=== PATIENT | female | born 1975 | race Caucasian/White ===

== ENCOUNTER 2020-04-21 23:36 | Emergency (ER) | payer MEDICAID, SELFPAY ==
[2020-04-21 23:41] VITALS: BP 130/90; PULSE 80; RESP 16; TEMP 36.6; O2SAT 97; BMI 41.9
--- NOTE | 2020-04-21 23:46 | ECG_ITS ---
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 Measurements Intervals [place] Rate: 77 P: 38 FL: 168 QRS: 0 QRSD: 94 T: 21 QT: 364 QTc: 414 Interpretive Statements SINUS RHYTHM No previous ECG available for comparison Electronically Signed On 04-22-2020 9:40:09 CDT by Garcia Salazar M.D. [id number] f
--- NOTE | 2020-04-21 23:46 | XRR_ITS ---
PROCEDURE INFORMATION: Exam: XR Chest, 1 View Exam date and time: 04/21/2020 11:59 PM Age: 45 years old Clinical indication: Chest pain; Other: Left axillary pain; Lt chest and back pain; Patient HX: C/O shortness of breath starting 04/21; Additional info: Cp TECHNIQUE: Imaging protocol: XR of the chest Views: 1 view. COMPARISON: No relevant prior studies available. FINDINGS: Lungs: No lung consolidation or pulmonary edema. Pleural space: No pleural effusion or pneumothorax. Heart/Mediastinum: The cardiac silhouette is not enlarged. The mediastinal contours are normal. Bones/joints: Possible upper left lateral rib fractures, age uncertain. There are multilevel bridging osteophytes in the spine. XR/XR chest 1V portable [id number] IMPRESSION: Possible upper left lateral rib fractures. Consider rib detail series for clarification, given the history.
[2020-04-22] LABS: Basophils # 0.1 10^3/uL (0.0-0.1); Basophils % 0.5 %; Eosinophils # 0.1 10^3/uL (0.0-0.8); Eosinophils % 1.1 %; Hematocrit 36.6 % (37.0-47.0); Hemoglobin 12.6 g/dL (11.5-15.3); Lymphocytes # 2.2 10^3/uL (0.8-4.8); Lymphocytes % 21.3 %; Mean Corpuscular HGB Conc 34.4 g/dL (30.0-36.0); Mean Corpuscular Hemoglobin 31.7 pg (28.0-34.0); Mean Corpuscular Volume 92.2 fL (81-99); Mean Platelet Volume 11.3 fL (7.4-10.4); Monocytes # 0.8 10^3/uL (0.2-0.9); Monocytes % 7.5 %; Neutrophils # 7.3 10^3/uL (1.8-7.7); Neutrophils % 68.9 %; Nucleated Red Blood Cells % 0 %; Platelet Count 186 10^3/cmm (130-400); Red Blood Count 3.97 10^6/uL (4.1-5.3); Red Cell Distribution Width 13.4 % (12.1-15.1); White Blood Count 10.5 10^3/uL (4.0-10.0)
[2020-04-22 00:15] LABS: D Dimer 0.22 ug/mIFEU (0-0.59)
[2020-04-22 00:27] LABS: Troponin(5th) Baseline 6 ng/L (0-10)
[2020-04-22 00:32] LABS: Alanine Aminotransferase 19 U/L (0-33); Albumin Level 4.4 g/dL (3.5-5.2); Alkaline Phosphatase 84 IU/L (35-105); Anion Gap 16.9 (5-19); Aspartate Amino Transferase 16 U/L (0-32); Blood Urea Nitrogen 10 mg/dL (6-20); Calcium 9.6 mg/dL (8.5-10.5); Carbon Dioxide 25 mmol/L (22-29); Chloride 100 mmol/L (98-107); Creatine Phosphokinase 67 U/L (26-192); Globulin 2.9 g/dL (1.3-4.6); Glomerular Filtration Rate 78.3 mL/min (90-130); Glucose 127 mg/dL (65-115); NT Pro B Type Natriuretic Pept 6 pg/mL (0-125); Osmolality Calculated 284 mOsm/kg (285-295); Potassium 3.9 mmol/L (3.5-5.1); Sodium 138 mmol/L (136-145); Total Bilirubin 0.3 mg/dL (0.15-1.2); Total Protein 7.3 g/dL (6.6-8.7)
[2020-04-22 01:10] LABS: Add Urine Microscopic? YES; Bilirubin Urine Neg (NEGATIVE); Blood Urine Neg (Negative); Glucose Urine UA Norm (Normal); Ketones Urine Negative (Negative); Leukocyte Esterase Urine Trace (Negative); Nitrate Urine Negative (Negative); Protein Urine Neg (Negative); Specific Gravity, Urine 1.015 (1.005-1.030); Urine Appearance Clear (CLEAR); Urine Color Yellow (Yellow); Urobilinogen Urine Norm (Negative); pH Urine 6 (5-7)
[2020-04-22 01:11] LABS: RBC Urine RARE /hpf (0-2)
[2020-04-22 01:12] LABS: Add Urine Culture? No; Bacteria Urine TRACE; Mucus Urine TRACE; Squamous Epithelial Cell Urine 0-4 (0-5); WBC Urine 0-4 /hpf (0-5)
[2020-04-22 03:17] VITALS: BP 140/81; PULSE 95; RESP 14; O2SAT 99
--- NOTE | 2020-04-22 03:49 | W.ED.CHESTPA ---
HPI - Chest Pain General: Chief Complaint: Chest Pain Stated Complaint: CHEST PAIN Time Seen by Provider: 04/21/20 23:40 History of Present Illness: HPI narrative: 45-year-old female presents complaining of left-sided chest discomfort, nearly in her axilla. She states she feels some swelling into there at times. It is resolved now after the chief i dispatcher told her to take 325 mg of aspirin. MD complaint: chest pain Onset (ago): hour(s) Prior episodes: No Pain location: left chest Pain radiation: back Quality: sharp Relieving factors: nothing Associated symptoms: Reports nausea; Deny abdominal pain, dyspnea, fever(s), palpitations or vomiting Review of Systems Const: Denies: fever(s) Eyes: Denies: change in vision or blurry vision ENMT: Denies: swelling of lips/tongue, bleeding gums or sinus pain Card: Reports: chest pain; Denies: palpitations, irregular heart rhythm or edema Resp: Denies: dyspnea, productive cough, non-productive cough or wheezing GI: Reports: nausea; Denies: abdominal pain or vomiting : Denies: dysuria or hematuria Musc: Reports: back pain; Denies: neck pain, joint redness or joint warmth Skin/Breast: Denies: rash, pruritus or erythema Neuro: Denies: headache(s), dizziness or vertigo Psych: Denies: anxiety PFSH ED PFSH: Family History Mother Hypertension Denies family history of Stroke Social History Smoking and tobacco status: current every day smoker Alcohol intake: never Desire information about alcohol rehabilitation?: No Desire information about substance/drug rehabilitation?: No History of recent travel: No Current gender identity: Female Physical Exam Const: GENERAL APPEARANCE: well developed ORIENTATION/CONSCIOUSNESS: Yes oriented to person, Yes oriented to place and Yes oriented to time HENMT: COMMON NORMALS: normocephalic, external ears normal and Normal external nose present HEAD & SCALP: normocephalic FACE & SINUS: normal facial exam NOSE: Normal external nose present and No nasal discharge present EXTERNAL EAR: Yes external ears normal MOUTH: tongue normal Eye: COMMON NORMALS: Equal, round and reactive pupils present, EOMs intact bilaterally and conjunctivae normal EYELID: eyelids normal CONJUNCTIVA: Yes conjunctivae normal PUPIL: Yes Equal, round and reactive pupils present Neck/C-Spine: GENERAL: No tracheal deviation Chest: COMMONS NORMALS: normal inspection of the chest CHEST: Yes tenderness Resp: COMMON NORMALS: clear to auscultation bilaterally EFFORT & INSPECTION: No tachypneic, No respiratory distress, No retractions, No uses accessory muscles and No tracheal deviation AUSCULTATION: clear to auscultation bilaterally, no rhonchi, no wheezes and lung sounds not diminished Cardio: COMMON NORMALS: regular rate and regular rhythm RATE: regular rate RHYTHM: regular rhythm HEART SOUNDS: no murmurs PERIPHERAL PULSES: radial pulses present GI: INSPECTION: No abdominal distension AUSCULTATION: No Hyperactive bowel sounds present and No Hypoactive bowel sounds present PALPATION: No Guarding due to palpation present (GI) and No Rigid due to palpation PERCUSSION: no dullness to percussion and no tympanic to percussion Neuro: SENSORIUM/ORIENTATION: Yes oriented to person, Yes oriented to place and Yes oriented to time Psych: COMMON NORMALS: mental status grossly normal Skin: COMMON NORMALS: no rashes or lesions noted GENERAL SKIN EXAM: no rashes or lesions noted Course Vital Signs: Vital signs: Vital Signs Temperature 97.9 F 04/21/20 23:41 Pulse Rate 80 04/21/20 23:41 Respiratory Rate 16 04/21/20 23:41 Blood Pressure 130/90 04/21/20 23:41 Pulse Oximetry 97 04/21/20 23:41 MDM - Chest Pain MDM Narrative: Medical decision making narrative: 45-year-old female with resolved chest pain that seems pleuritic in nature. It is somewhat reproducible on exam. White blood cell count is 10.5. Hemoglobin 12.6. Troponin is negative. EKG is normal. Chest x-ray is normal. D-dimer is negative. Lab Data: Labs: Lab Results 04/21/20 04/21/20 04/21/20 Range/Units 23:55 23:55 23:55 WBC 10.5 H (4.0-10.0) 10^3/ uL RBC 3.97 L (4.1-5.3) 10^6/u L Hgb 12.6 (11.5-15.3) g/dL Hct 36.6 L (37.0-47.0) % MCV 92.2 (81-99) fL MCH 31.7 (28.0-34.0) pg MCHC 34.4 (30.0-36.0) g/dL RDW 13.4 (12.1-15.1) % Plt Count 186 (130-400) 10^3/c mm MPV 11.3 H (7.4-10.4) fL Neut % (Auto) 68.9 % Lymph % (Auto) 21.3 % [place] % (Auto) 7.5 % Eos % (Auto) 1.1 % Baso % (Auto) 0.5 % Neut # (Auto) 7.3 (1.8-7.7) 10^3/u L Lymph # (Auto) 2.2 (0.8-4.8) 10^3/u L [place] # (Auto) 0.8 (0.2-0.9) 10^3/u L Eos # (Auto) 0.1 (0.0-0.8) 10^3/u L Baso # (Auto) 0.1 (0.0-0.1) 10^3/u L Nucleated RBC % (a uto) 0 % Nucleated RBCs # 0.0 /100WBC D-Dimer 0.22 (0-0.59) ug/mIFE U Sodium 138 (136-145) mmol/L Potassium 3.9 (3.5-5.1) mmol/L Chloride 100 (98-107) mmol/L Carbon Dioxide 25 (22-29) mmol/L Anion Gap 16.9 (5-19) BUN 10 (6-20) mg/dL Creatinine 0.8 (0.5-0.9) mg/dL GFR Calculation 78.3 L (90-130) mL/min Glucose 127 H (65-115) mg/dL Calculated Osmolal ity 284 L (285-295) mOsm/k g Calcium 9.6 (8.5-10.5) mg/dL Total Bilirubin 0.3 (0.15-1.2) mg/dL AST 16 (0-32) U/L ALT 19 (0-33) U/L Alkaline Phosphata se 84 (35-105) IU/L Creatine Kinase 67 (26-192) U/L Troponin T Baselin e (0-10) ng/L NT-Pro-B Natriuret Pep 6 (0-125) pg/mL Total Protein 7.3 (6.6-8.7) g/dL Albumin 4.4 (3.5-5.2) g/dL Globulin 2.9 (1.3-4.6) g/dL Urine Color (Yellow) Urine Appearance (CLEAR) Urine pH (5-7) Ur Specific Gravit y (1.005-1.030) Urine Protein (Negative) Urine Glucose (UA) (Normal) Urine Ketones (Negative) Urine Blood (Negative) Urine Nitrate (Negative) Urine Bilirubin (NEGATIVE) Urine Urobilinogen (Negative) mg/dL Ur Leukocyte Landy ase (Negative) Urine RBC (0-2) /hpf Urine WBC (0-5) /hpf Ur Squamous Epith Cells (0-5) Amorphous Sediment Urine Bacteria (NONE) Urine Mucus 04/21/20 04/22/20 Range/Units 23:55 00:20 WBC (4.0-10.0) 10^3/ uL RBC (4.1-5.3) 10^6/u L Hgb (11.5-15.3) g/dL Hct (37.0-47.0) % MCV (81-99) fL MCH (28.0-34.0) pg MCHC (30.0-36.0) g/dL RDW (12.1-15.1) % Plt Count (130-400) 10^3/c mm MPV (7.4-10.4) fL Neut % (Auto) % Lymph % (Auto) % [place] % (Auto) % Eos % (Auto) % Baso % (Auto) % Neut # (Auto) (1.8-7.7) 10^3/u L Lymph # (Auto) (0.8-4.8) 10^3/u L [place] # (Auto) (0.2-0.9) 10^3/u L Eos # (Auto) (0.0-0.8) 10^3/u L Baso # (Auto) (0.0-0.1) 10^3/u L Nucleated RBC % (a uto) % Nucleated RBCs # /100WBC D-Dimer (0-0.59) ug/mIFE U Sodium (136-145) mmol/L Potassium (3.5-5.1) mmol/L Chloride (98-107) mmol/L Carbon Dioxide (22-29) mmol/L Anion Gap (5-19) BUN (6-20) mg/dL Creatinine (0.5-0.9) mg/dL GFR Calculation (90-130) mL/min Glucose (65-115) mg/dL Calculated Osmolal ity (285-295) mOsm/k g Calcium (8.5-10.5) mg/dL Total Bilirubin (0.15-1.2) mg/dL AST (0-32) U/L ALT (0-33) U/L Alkaline Phosphata se (35-105) IU/L Creatine Kinase (26-192) U/L Troponin T Baselin e 6 (0-10) ng/L NT-Pro-B Natriuret Pep (0-125) pg/mL Total Protein (6.6-8.7) g/dL Albumin (3.5-5.2) g/dL Globulin (1.3-4.6) g/dL Urine Color Yellow (Yellow) Urine Appearance Clear (CLEAR) Urine pH 6 (5-7) Ur Specific Gravit y 1.015 (1.005-1.030) Urine Protein Neg (Negative) Urine Glucose (UA) Norm (Normal) Urine Ketones Negative (Negative) Urine Blood Neg (Negative) Urine Nitrate Negative (Negative) Urine Bilirubin Neg (NEGATIVE) Urine Urobilinogen Norm (Negative) mg/dL Ur Leukocyte Landy ase Trace H (Negative) Urine RBC Rare (0-2) /hpf Urine WBC 0-4 H (0-5) /hpf Ur Squamous Epith Cells 0-4 H (0-5) Amorphous Sediment Not Reportable Urine Bacteria Trace (NONE) Urine Mucus Trace Discharge Plan Discharge Patient Disposition: Home, Self-Care Clinical Impression: Atypical chest pain, Costalchondritis Condition: Stable Prescriptions: New ketorolac 10 mg tablet 10 mg PO TID PRN (Reason: pain) Qty: 7 RF: 0 No Action lisinopril 10 mg tablet 10 mg PO DAILY RF: 0 bupropion HCl [Wellbutrin SR] 150 mg tablet sustained-release 12 hr 150 mg PO DAILY RF: 0 Discharge Orders: Discharge Order (Routine); Ordered 04/22/20 Ordered By: Vinayak Keene Discharge Diet: Usual diet Discharge Activity: Increase activity as tolerated Patient Instructions: Chest Pain (ED), Costochondritis (ED) Activity Restrictions/Additional Instructions: Return for worsening chest pain despite treatment, shortness of breath, fever greater than 100, cough, other concerning symptoms. Coding Level of Care Code ED Video Tape Duplicator for Jenifer Westbrook
--- NOTE | 2020-04-22 04:47 | PC.NURSE ---
i agree with this assessment
== END 2020-04-22 03:17 | disposition home or self-care (01) ==
PROVIDERS: Emergency Provider Emergency Medicine
DX: R07.89 Other chest pain (principal); M94.0 Chondrocostal junction syndrome [Tietze]; F17.210 Nicotine dependence, cigarettes, uncomplicated
CPT/HCPCS: 12345; 71045; 80053; 81001; 82550; 83880; 84484; 85025; 85378; 93005; 99282; 99284

== ENCOUNTER → 2020-06-21 16:36 | Outpatient (BNVA) | payer MEDICAID, SELFPAY | PROVIDERS: Visit Provider Emergency Medicine | DX: E66.9 Obesity, unspecified (principal); I10 Essential (primary) hypertension | CPT/HCPCS: 80053; 80061; 83880; 84443 ==

== ENCOUNTER → 2020-12-17 12:06 | Outpatient (BNVA) | payer MEDICAID, SELFPAY | PROVIDERS: PCP Family Medicine; Visit Provider Family Medicine | DX: E66.9 Obesity, unspecified (principal); R73.9 Hyperglycemia, unspecified; Z13.1 Encounter for screening for diabetes mellitus; E78.2 Mixed hyperlipidemia; I10 Essential (primary) hypertension; Z12.4 Encounter for screening for malignant neoplasm of cervix; Z13.220 Encounter for screening for lipoid disorders; Z13.6 Encounter for screening for cardiovascular disorders | CPT/HCPCS: 80053; 80061; 83036; 83721; 88175 ==

== ENCOUNTER → 2020-12-26 12:12 | Outpatient (BNVA) | payer MEDICAID, SELFPAY | PROVIDERS: PCP Family Medicine; Visit Provider Family Medicine | DX: I10 Essential (primary) hypertension (principal); K21.9 Gastro-esophageal reflux disease without esophagitis; A59.9 Trichomoniasis, unspecified; E78.2 Mixed hyperlipidemia; R87.616 Satisfactory cervical smear but lacking transformation zone; Z11.3 Encounter for screening for infections with a predominantly sexual mode of transmission | CPT/HCPCS: 87491; 87591 ==

== ENCOUNTER 2021-05-15 03:42 | Emergency (ER) | payer MEDICAID, SELFPAY ==
[2021-05-15 03:43] VITALS: BP 127/80; PULSE 78; RESP 16; TEMP 36.6; O2SAT 99; BMI 46.3
--- NOTE | 2021-05-15 03:54 | W.ED.GENADLT ---
HPI - General Adult General: Stated complaint: chest tightness Time Seen by Provider: 05/15/21 03:45 History of Present Illness: HPI narrative: This patient presents to the emergency department complaint of multiple vague complaints and thinks there related to the Covid vaccine that she got yesterday. Patient states upon arrival to the emergency department now all symptoms have resolved. Patient was transported by ambulance from [facility] about an hour away. Patient states that she thought she had developed a rash but it is resolved. Patient states that she had some numbness and tingling that is also resolved patient is feeling much better now. Patient had called the emergency department multiple times earlier tonight asking questions. Similar nature. Patient was given reassurance. Patient has a negative exam patient will be discharged home. Severity: mild Pain Consistency: now resolved Associated symptoms: Deny chest pain, dyspnea, headache(s), nausea, rash, palpitations or vomiting Review of Systems General: Reports: 10 or more systems reviewed and unremarkable except in HPI and below Const: Denies: fever(s), chills, body aches or fatigue Eyes: Denies: change in vision or blurry vision ENMT: Denies: throat pain, hoarseness or mouth pain Card: Denies: chest pain, palpitations, irregular heart rhythm, edema, swelling of feet/ankles or lightheadedness Resp: Denies: dyspnea, productive cough, non-productive cough, wheezing or pain on inspiration GI: Denies: abdominal pain, nausea or vomiting : Denies: flank pain, difficulty voiding, dysuria, urinary frequency, urinary urgency or urinary hesitancy Musc: Denies: neck pain, back pain, extremity pain, extremity swelling, joint pain, joint swelling, joint redness, joint warmth or limited range of motion Skin/Breast: Denies: rash, pruritus, erythema or skin tenderness Neuro: Denies: headache(s), numbness in extremities or weakness in extremities Psych: Reports: anxiety; Denies: depression PFSH ED PFSH: Medical History Essential hypertension GERD (gastroesophageal reflux disease) Mixed hyperlipidemia Obesity Surgical History No pertinent past surgical history Family History Mother Hypertension Denies family history of Stroke Social History Smoking and tobacco status: current every day smoker Alcohol intake: never Desire information about alcohol rehabilitation?: No Desire information about substance/drug rehabilitation?: No History of recent travel: No Current gender identity: Female Female Reproductive History: Spontaneous abortions: No Physical Exam Const: COMMON NORMALS: no acute distress, average body habitus, patient oriented x3, no limitations, healthy appearing, alert and well nourished HENMT: COMMON NORMALS: normocephalic, atraumatic, hearing grossly normal bilaterally, external ears normal, EAC's normal, TM's normal bilaterally, Normal external nose present, Normal nasal mucous membranes and turbinates present, moist oral mucous membranes, oropharynx normal, dentition normal and gingiva normal HEAD & SCALP: normocephalic and atraumatic NOSE: Normal external nose present and Normal nasal mucous membranes and turbinates present EXTERNAL EAR: Yes external ears normal EXTERNAL AUDITORY CANAL: EAC's normal TYMPANIC MEMBRANE: TM's normal bilaterally Neck/C-Spine: COMMON NORMALS: full ROM, no lymphadenopathy, supple, no meningeal signs, no JVD, Thyroid normal and No carotid bruits THYROID: Thyroid normal Chest: COMMONS NORMALS: normal inspection of the chest, normal palpation of entire chest wall, normal inspection of the breasts and normal palpation of the breasts Breast/axilla inspection: Yes normal inspection of the breasts BREAST/AXILLA PALPATION: Yes normal palpation of the breasts Resp: COMMON NORMALS: normal respiratory effort, No retractions, No use of accessory muscles, clear to auscultation bilaterally and percussion normal AUSCULTATION: clear to auscultation bilaterally PERCUSSION: percussion normal Cardio: COMMON NORMALS: no JVD, regular rate, regular rhythm, S1 normal heart sound present, S2 normal heart sound present, No gallops present (Cardio), No clicks present (Cardio), No murmurs present (Cardio), No rub (Cardio) and Peripheral pulses 2+ throughout RATE: regular rate RHYTHM: regular rhythm HEART SOUNDS: S1 normal heart sound present and S2 normal heart sound present PERIPHERAL PULSES: Peripheral pulses 2+ throughout GI: COMMON NORMALS: Normal to inspection, nondistended, normoactive bowel sounds present, Soft to palpation, non-tender, No hepatosplenomegaly present, no masses and no bruits PALPATION: Yes Soft to palpation and Yes No hepatosplenomegaly present Back/Pelvis: COMMON NORMALS: thoracic and lumbar spine normal to inspection, no thoracic nor lumbar tenderness, thoraco-lumbar ROM normal and straight leg raise negative bilaterally Extremity: COMMON NORMALS: normal to inspection, full ROM, capillary refill normal, no joint enlargement, no clubbing, cyanosis or edema, no calf tenderness and no pedal edema Neuro: COMMON NORMALS: patient oriented x3 SENSORIUM/ORIENTATION: Yes alert MENINGEAL SIGNS: Yes no meningeal signs MDM - General Adult MDM Narrative: Medical decision making narrative: Negative evaluation for any acute findings. Patient given reassurance. Advised to follow-up with her primary care physician discuss any options for chronic anxiety issues. Patient may take Tylenol Motrin as needed for soreness to the arm from her vaccine. Discharge Plan Discharge Patient Disposition: Home Clinical Impression: Encounter for medical screening examination, Anxiety Condition: Stable Prescriptions: No Action azithromycin 250 mg tablet See Rx Instructions PO .COMPLEX Qty: 6 RF: 0 prednisone 20 mg tablet 40 mg PO DAILY 5 Days Qty: 10 RF: 0 lidocaine 5 % adhesive patch,medicated 1 patch topical Q24H Qty: 15 RF: 1 omeprazole 20 mg capsule,delayed release(DR/EC) 20 mg PO DAILY 90 Days Qty: 90 RF: 1 lisinopril 40 mg tablet 40 mg PO DAILY 90 Days Qty: 90 RF: 1 Discharge Orders: Discharge ED (Routine); Ordered 05/15/21 Ordered By: Arsalan Whatley Referrals: Mansi Miranda MD [Primary Care Provider] - Discharge Diet: Advance as tolerated Discharge Activity: Resume usual activity Patient Instructions: Opioid Safety Activity Restrictions/Additional Instructions: May take Tylenol Motrin as needed as needed for pain to the arm of immunization. Follow-up with PCP to discuss options about your anxiety. Coding Level of Care Code ED Gear Tooth Grinding Machine Operator for Jenifer Westbrook
--- NOTE | 2021-05-15 03:57 | PC.NURSE ---
Pt stated symptoms were resloved upon arrival to ED
== END 2021-05-15 04:04 | disposition home or self-care (01) ==
PROVIDERS: Emergency Provider Emergency Medicine; PCP Family Medicine
DX: F41.9 Anxiety disorder, unspecified (principal); I10 Essential (primary) hypertension; E78.2 Mixed hyperlipidemia; E66.9 Obesity, unspecified; Z68.42 Body mass index [BMI] 45.0-49.9, adult; F17.200 Nicotine dependence, unspecified, uncomplicated
CPT/HCPCS: 99282

== ENCOUNTER → 2021-06-26 11:33 | Outpatient (BNVA) | payer MEDICAID, SELFPAY | PROVIDERS: PCP Family Medicine; Visit Provider Family Medicine | DX: I10 Essential (primary) hypertension (principal); J44.9 Chronic obstructive pulmonary disease, unspecified; Z11.3 Encounter for screening for infections with a predominantly sexual mode of transmission; K21.9 Gastro-esophageal reflux disease without esophagitis; Z72.0 Tobacco use; Z86.19 Personal history of other infectious and parasitic diseases | CPT/HCPCS: 87491; 87591; 87661 ==

== ENCOUNTER → 2021-11-07 14:47 | Outpatient (BNVA) | payer MEDICAID, SELFPAY | PROVIDERS: PCP Family Medicine; Visit Provider Emergency Medicine | DX: R07.89 Other chest pain (principal); G89.29 Other chronic pain; M54.2 Cervicalgia | CPT/HCPCS: 71046; 72040 ==

== ENCOUNTER → 2022-01-01 10:49 | Outpatient (BNVA) | payer MEDICAID, SELFPAY | PROVIDERS: PCP Family Medicine; Visit Provider Family Medicine | DX: E78.2 Mixed hyperlipidemia (principal); I10 Essential (primary) hypertension; J44.9 Chronic obstructive pulmonary disease, unspecified; K21.9 Gastro-esophageal reflux disease without esophagitis | CPT/HCPCS: 80053; 80061; 85025 ==

== ENCOUNTER 2022-01-16 13:17 | Outpatient (CLI) | payer MEDICAID, SELFPAY ==
--- NOTE | 2022-01-16 14:00 | CT_ITS ---
[id number]. Additional two-dimensional coronal and sagittal reconstruction was per formed. 01/16/2022 Clinical Data: R07.89 - Other chest pain Comparison: None. DLP: 1878.[address] scans at [facility] use at least one of these dose optimization techniques: automated e xposure control; mA and/or kV adjustment per patient size (includes targeted exams where dose is matc hed to clinical indication); or iterative reconstruction. Findings: No thoracic compression fractures are seen. There is compression fracture of the L1 vertebral body wi th loss of 25-50% of anterior central vertebral body height of unknown age. Anterior bridging osteoph ytes at T12 and L1 are seen. There are bridging osteophytes at multiple thoracic levels. The spinous processes are in good alignment. The proximal ribs are not remarkable. Paravertebral regions are unre markable. CT/CT thoracic spin wo con* [id number] Impression: 1. L1 compression fracture of unknown age. 2. 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 3. Negative for thoracic compression fractures.
== END 2022-01-16 13:18 | disposition home or self-care (01) ==
LOC: RAD 13:19
PROVIDERS: PCP Family Medicine; Visit Provider Emergency Medicine
DX: R07.89 Other chest pain (principal); M54.10 Radiculopathy, site unspecified; S32.019A Unspecified fracture of first lumbar vertebra, initial encounter for closed fracture; X58.XXXA Exposure to other specified factors, initial encounter
CPT/HCPCS: 72128

== ENCOUNTER → 2022-01-29 11:08 | Outpatient (BNVA) | payer MEDICAID, SELFPAY | PROVIDERS: PCP Family Medicine; Referring Provider Emergency Medicine; Visit Provider Physician Assistant | DX: M47.22 Other spondylosis with radiculopathy, cervical region (principal); M50.30 Other cervical disc degeneration, unspecified cervical region | CPT/HCPCS: 72050; 99203; 99999 ==

== ENCOUNTER 2022-03-18 12:42 | Outpatient (CLI) | payer MEDICAID, SELFPAY ==
--- NOTE | 2022-03-18 13:00 | MR_ITS ---
WS: [id number] MRI CERVICAL SPINE NONCONTRAST TECHNIQUE: Sagittal T1, T2 and STIR imaging. Axial T2, gradient, and fiesta imaging. CLINICAL INFORMATION: neck pain COMPARISON: None. FINDINGS: Straightening of the normal cervical lordosis. Cord signal is normal. No high-grade central canal hali rowing. C2-C3: Normal. C3-C4: Mild disc bulging. Mild facet arthropathy. Mild LEFT and no RIGHT foraminal narrowing. Mild fa cet arthropathy. Spinal canal is patent. C4-C5: Minimal disc bulging. Mild facet arthropathy. Spinal canal and foramen are patent. C5-C6: Mild disc bulge with endplate ridging. Mild facet arthropathy. Mild LEFT and no RIGHT foramina l narrowing. C6-C7: Minimal disc bulging. Spinal canal and foramen are patent. C7-T1: Normal. Visualized brain stem structures: Normal. Prevertebral soft tissues: Normal. MR/MR cervical spin wo con* [id number] IMPRESSION: 1. Straightening of the normal cervical lordosis. Cord signal is normal. 2. Minimal disc bulging in the mid cervical spine C3-C5 without significant sp inal canal narrowing. 3. Mild bony foraminal narrowing LEFT C3-C4, LEFT C4-C5, and LEFT C5-C6. 4. Mild facet arthropathy more prominent at LEFT C3-C4, LEFT C4-C5 and LEFT C6 -C7.
== END 2022-03-18 12:43 | disposition home or self-care (01) ==
LOC: RAD 12:44
PROVIDERS: PCP Family Medicine; Visit Provider Physician Assistant
DX: M47.22 Other spondylosis with radiculopathy, cervical region (principal); M50.21 Other cervical disc displacement, high cervical region
CPT/HCPCS: 72141

== ENCOUNTER → 2022-04-07 10:39 | Outpatient (BNVA) | payer MEDICAID, SELFPAY | PROVIDERS: PCP Family Medicine; Visit Provider Physician Assistant | DX: M50.30 Other cervical disc degeneration, unspecified cervical region (principal); M47.812 Spondylosis without myelopathy or radiculopathy, cervical region | CPT/HCPCS: 99213 ==

== ENCOUNTER 2022-04-10 10:44 | Outpatient (CLI) | payer MEDICAID, SELFPAY ==
--- NOTE | 2022-04-10 10:53 | MM_ITS ---
WS: [id number] SCREENING DIGITAL BREAST TOMOSYNTHESIS MAMMOGRAM WITH CAD HISTORY: SCREEN COMPARISON: None available. Bilateral CC and MLO with tomosynthesis and synthetic mammography submitted. Computer aided detection analyzed. Breast composition: There are scattered areas of fibroglandular density. Ovoid asymmetry measuring 15 mm in the lateral LEFT breast on the CC projection. Not identified on the lateral projection. This i s probably normal fibroglandular tissue but should be further evaluated. Benign calcifications in eac h breast. MM/[place] [id number] IMPRESSION: BI-RADS: 0-Incomplete: Need additional imaging evaluation FOLLOW UP: Need Additional Imaging LEFT breast: Spot compression views (CC ). True ML. Ultrasound to follow if abn ormality persists.
== END 2022-04-10 10:45 | disposition home or self-care (01) ==
LOC: RAD 10:48
PROVIDERS: PCP Family Medicine; Visit Provider Family Medicine
DX: Z12.31 Encounter for screening mammogram for malignant neoplasm of breast (principal)
CPT/HCPCS: 77063; 77067

== ENCOUNTER 2022-04-24 13:08 | Outpatient (CLI) | payer MEDICAID, SELFPAY ==
--- NOTE | 2022-04-24 13:16 | MM_ITS ---
WS: [id number] ADDITIONAL VIEWS LEFT MAMMOGRAM WITH DIGITAL BREAST TOMOSYNTHESIS. HISTORY: Abnormal findings on screening mammogram 04/10/2022. COMPARISON: 04/10/2022. Spot compression views LEFT breast in CC, MLO projections and true ML submitted with digital breast t omosynthesis and SM. Very slight asymmetry nearly completely resolves with additional imaging. No persistent mass or calci fication identified. No ultrasound necessary. MM/[place] [id number] IMPRESSION: BI-RADS: 2-Benign FOLLOW UP: 1 Year Follow-up
== END 2022-04-24 13:09 | disposition home or self-care (01) ==
LOC: RAD 13:09
PROVIDERS: PCP Family Medicine; Visit Provider Family Medicine
DX: R92.8 Other abnormal and inconclusive findings on diagnostic imaging of breast (principal)
CPT/HCPCS: 77061

== ENCOUNTER → 2022-05-28 11:13 | Outpatient (BNVA) | payer MEDICAID, SELFPAY | PROVIDERS: PCP Family Medicine; Visit Provider Family Medicine | DX: K21.9 Gastro-esophageal reflux disease without esophagitis (principal); I10 Essential (primary) hypertension; M50.30 Other cervical disc degeneration, unspecified cervical region; F41.1 Generalized anxiety disorder; R51.9 Headache, unspecified; J41.0 Simple chronic bronchitis; N39.0 Urinary tract infection, site not specified; N95.1 Menopausal and female climacteric states; N92.6 Irregular menstruation, unspecified; R30.0 Dysuria | CPT/HCPCS: 80048; 81000; 83001; 83002; 87086 ==

== ENCOUNTER → 2022-08-19 11:50 | Outpatient (BNVA) | payer MEDICAID, SELFPAY | PROVIDERS: PCP Family Medicine; Visit Provider Emergency Medicine | DX: R68.89 Other general symptoms and signs (principal); J10.1 Influenza due to other identified influenza virus with other respiratory manifestations; Z72.0 Tobacco use; J41.0 Simple chronic bronchitis | CPT/HCPCS: 87400 ==

== ENCOUNTER 2022-09-21 00:30 | Emergency (ER) | payer MEDICAID, SELFPAY ==
[2022-09-21] VITALS (7 sets, daily range): BP systolic 125–167; BP diastolic 89–107; PULSE 78–85; RESP 14–17; TEMP 37.1; O2SAT 96–99; BMI 42.7
--- NOTE | 2022-09-21 00:42 | W.ED.GENADLT ---
HPI - General Adult General: Chief complaint: General Medical Stated complaint: htn Time Seen by Provider: 09/21/22 00:32 Source: patient and EMS Mode of arrival: EMS Limitations: no limitations History of Present Illness: 47-year-old female who states that her blood pressures been running high tonight she states originally was in the 200s blood pressure is now is 160/109 states she had a mild headache denies any chest pain denies any vomiting diarrhea she takes lisinopril states she has been taking her lisinopril as prescribed. Associated symptoms: Deny chest pain, dyspnea, headache(s), nausea, rash or vomiting Review of Systems Const: Denies: fever(s), chills, body aches or change in appetite Eyes: Denies: blurry vision or eye discomfort ENMT: Denies: throat pain or dental pain Card: Denies: chest pain Resp: Denies: dyspnea GI: Denies: abdominal pain, nausea, vomiting or diarrhea : Denies: dysuria Musc: Denies: neck pain or back pain Skin/Breast: Denies: rash Neuro: Denies: headache(s) Psych: Denies: depression Luis A/Lymph: Denies: easy bruising All/Imm: Denies: urticaria PFSH ED PFSH: Medical History Chronic back pain greater than 3 months duration Essential hypertension GERD (gastroesophageal reflux disease) Mixed hyperlipidemia Obesity Surgical History No pertinent past surgical history Family History Mother Hypertension Denies family history of Stroke Social History Smoking and tobacco status: current every day smoker cigarettes Packs smoked per day: 1 Years cigarettes smoked: 30 Alcohol intake: never Desire information about alcohol rehabilitation?: No Desire information about substance/drug rehabilitation?: No History of recent travel: No Current gender identity: Female Female Reproductive History: Date of last menstrual period: 05/08/21 Spontaneous abortions: No Physical Exam Const: COMMON NORMALS: no acute distress, patient oriented x3 and healthy appearing HENMT: COMMON NORMALS: normocephalic and atraumatic HEAD & SCALP: normocephalic and atraumatic Eye: COMMON NORMALS: Equal, round and reactive pupils present and EOMs intact bilaterally PUPIL: Yes Equal, round and reactive pupils present Neck/C-Spine: COMMON NORMALS: full ROM and supple Chest: COMMONS NORMALS: normal inspection of the chest and normal palpation of entire chest wall Resp: COMMON NORMALS: normal respiratory effort, No retractions, No use of accessory muscles and clear to auscultation bilaterally AUSCULTATION: clear to auscultation bilaterally Cardio: COMMON NORMALS: regular rate, regular rhythm and No murmurs present (Cardio) RATE: regular rate RHYTHM: regular rhythm GI: COMMON NORMALS: Normal to inspection, nondistended, normoactive bowel sounds present, Soft to palpation, non-tender and no masses PALPATION: Yes Soft to palpation Extremity: COMMON NORMALS: normal to inspection and full ROM Neuro: COMMON NORMALS: patient oriented x3, moves all extremities and no focal motor deficits Psych: COMMON NORMALS: mental status grossly normal, Normal thought process present and cooperative THOUGHT PROCESS: Normal thought process present Skin: COMMON NORMALS: no rashes or lesions noted and no wounds GENERAL SKIN EXAM: no rashes or lesions noted Course Vital Signs: Vital signs: Vital Signs Temperature 98.8 F 09/21/22 00:36 Pulse Rate 85 09/21/22 01:00 Respiratory Rate 16 09/21/22 01:00 Blood Pressure 129/92 09/21/22 01:00 Pulse Oximetry 96 09/21/22 01:00 Oxygen Delivery Me thod 09/21/22 00:45 MDM - General Adult Medical Decision Making Patient presents with hypertension she is asymptomatic she is well-appearing here blood pressure is normal currently blood work is normal we will start her on metoprolol have her follow-up with her PCP and return if worsening she understands agrees to the plan. Lab Data 09/21/22 00:56 09/21/22 00:56 Laboratory Results WBC 7.1 10^3/uL (4.0-10.0) 09/21/22 00:56 RBC 4.07 10^6/uL (4.1-5.3) L 09/21/22 00:56 Hgb 12.4 g/dL (11.5-15.3) 09/21/22 00:56 Hct 35.9 % (37.0-47.0) L 09/21/22 00:56 MCV 88.2 fl (81-99) 09/21/22 00:56 MCH 30.5 pg (28.0-34.0) 09/21/22 00:56 MCHC 34.5 g/dL (30.0-36.0) 09/21/22 00:56 RDW 13.3 % (12.1-15.1) 09/21/22 00:56 Plt Count 161 10^3/cmm (130-400) 09/21/22 00:56 MPV 10.8 fL (7.4-10.4) H 09/21/22 00:56 Neut % (Auto) 64.5 % 09/21/22 00:56 Lymph % (Auto) 26.6 % 09/21/22 00:56 [place] % (Auto) 5.1 % 09/21/22 00:56 Eos % (Auto) 2.1 % 09/21/22 00:56 Baso % (Auto) 0.3 % 09/21/22 00:56 Neut # (Auto) 4.57 10^3/uL (1.8-7.7) 09/21/22 00:56 Lymph # (Auto) 1.9 10^3/uL (0.8-4.8) 09/21/22 00:56 [place] # (Auto) 0.4 10^3/uL (0.2-0.9) 09/21/22 00:56 Eos # (Auto) 0.2 10^3/uL (0.0-0.8) 09/21/22 00:56 Baso # (Auto) 0.0 10^3/uL (0.0-0.1) 09/21/22 00:56 Nucleated RBC % (auto) 0 % 09/21/22 00:56 Nucleated RBCs # 0.0 /100WBC 09/21/22 00:56 Sodium 140 mmol/L (136-145) 09/21/22 00:56 Potassium 3.8 mmol/L (3.5-5.1) 09/21/22 00:56 Chloride 105 mmol/L (98-107) 09/21/22 00:56 Carbon Dioxide 25 mmol/L (22-29) 09/21/22 00:56 Anion Gap 13.8 (5-19) 09/21/22 00:56 BUN 8 mg/dL (6-20) 09/21/22 00:56 Creatinine 0.8 mg/dL (0.5-0.9) 09/21/22 00:56 Calculated Osmolality 289 mOsm/kg (285-295) 09/21/22 00:56 Calcium 9.4 mg/dL (8.5-10.5) 09/21/22 00:56 Total Bilirubin 0.5 mg/dL (0.15-1.2) 09/21/22 00:56 AST 21 U/L (0-32) 09/21/22 00:56 ALT 26 U/L (0-33) 09/21/22 00:56 Alkaline Phosphatase 78 U/L (35-105) 09/21/22 00:56 Total Protein 6.7 g/dL (6.6-8.7) 09/21/22 00:56 Albumin 3.9 g/dL (3.5-5.2) 09/21/22 00:56 Globulin 2.8 g/dL (1.3-4.6) 09/21/22 00:56 EKG Data EKG 1: I personally reviewed and interpreted this EKG as follows: EKG interpretation date: 09/21/22 EKG interpretation time: 00:50 Interpretation: nsr hr [address] or t wave abnormalities qrs 92 qtc 400 Discharge Plan Discharge Patient Disposition: Home Clinical Impression: Essential hypertension Condition: Stable Prescriptions: New metoprolol succinate 25 mg tablet extended release 24 hr 25 mg PO DAILY Qty: 30 0RF No Action [id number] [Bromfed DM] 2-30-10 mg/5 mL syrup 7.5 ml PO Q6H PRN (Reason: cold symptoms) Qty: 160 0RF doxycycline hyclate 100 mg tablet 100 mg PO BID 10 Days Qty: 20 0RF prednisone 10 mg tablet 10 mg PO DAILY 5 Days Qty: 5 0RF buspirone 5 mg tablet 5 mg PO BID PRN (Reason: anxiety) 30 Days Qty: 60 2RF tizanidine 2 mg tablet 4 mg PO DAILY PRN (Reason: muscle spasticity) Qty: 30 2RF Rx Instructions: 1 or 2 tabs as directed for neck pain/headache diclofenac sodium 50 mg tablet,delayed release (DR/EC) 50 mg PO BID PRN (Reason: arthritis pain) 90 Days Qty: 180 1RF Rx Instructions: WITH FOOD albuterol sulfate [ProAir HFA] 90 mcg/actuation HFA aerosol inhaler 2 puff inhalation QID PRN (Reason: shortness of breath or wheezing) 30 Days Qty: 18 5RF budesonide-formoterol [Symbicort] 160-4.5 mcg/actuation HFA aerosol inhaler 2 puff inhalation Q12H 30 Days Qty: 10.2 5RF Rx Instructions: rinse your mouth out after use lisinopril 40 mg tablet 40 mg PO DAILY 90 Days Qty: 90 1RF Rx Instructions: 340B omeprazole 40 mg capsule,delayed release(DR/EC) 40 mg PO DAILY 90 Days Qty: 90 1RF Rx Instructions: 340B Discharge Orders: Discharge ED (Routine); Ordered 09/21/22 Ordered By: Ramona Mcneal Referrals: Mansi Miranda MD [Primary Care Provider] - 1-3 days Discharge Diet: Advance as tolerated Discharge Activity: Resume usual activity Patient Instructions: Hypertension (ED) Coding Level of Care Code ED Night Club Manager for Chg Fwd Exam Comprehensive
--- NOTE | 2022-09-21 00:50 | ECG_ITS ---
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 Measurements Intervals [place] Rate: 81 P: 20 ND: 169 QRS: -11 QRSD: 92 T: 6 QT: 362 QTc: 422 Interpretive Statements SINUS RHYTHM POSSIBLE ANTERIOR MYOCARDIAL INFARCTION , PROBABLY OLD [30 ms Q WAVE IN V3/V4, OR R < 0.2 mV IN V4] Compared to ECG 04/22/2020 00:00:39 Myocardial infarct finding now present Electronically Signed On 09-21-2022 14:21:28 FUNCTIONAL ANALYST by Madhavi Collins M.D. [id number]
[2022-09-21] MEDS: hyDRALAzine 20 mg/mL INJ 1 mL 10 MG IVP (01:00)
[2022-09-21 01:08] LABS: Basophils % 0.3 %; Eosinophils # 0.2 10^3/uL (0.0-0.8); Eosinophils % 2.1 %; Hematocrit 35.9 % (37.0-47.0); Hemoglobin 12.4 g/dL (11.5-15.3); Lymphocytes # 1.9 10^3/uL (0.8-4.8); Lymphocytes % 26.6 %; Mean Corpuscular HGB Conc 34.5 g/dL (30.0-36.0); Mean Corpuscular Hemoglobin 30.5 pg (28.0-34.0); Mean Corpuscular Volume 88.2 fl (81-99); Mean Platelet Volume 10.8 fL (7.4-10.4); Monocytes # 0.4 10^3/uL (0.2-0.9); Monocytes % 5.1 %; Neutrophils # 4.57 10^3/uL (1.8-7.7); Neutrophils % 64.5 %; Nucleated Red Blood Cells % 0 %; Platelet Count 161 10^3/cmm (130-400); Red Blood Count 4.07 10^6/uL (4.1-5.3); Red Cell Distribution Width 13.3 % (12.1-15.1); White Blood Count 7.1 10^3/uL (4.0-10.0)
[2022-09-21 01:29] LABS: Alanine Aminotransferase 26 U/L (0-33); Albumin Level 3.9 g/dL (3.5-5.2); Alkaline Phosphatase 78 U/L (35-105); Anion Gap 13.8 (5-19); Aspartate Amino Transferase 21 U/L (0-32); Blood Urea Nitrogen 8 mg/dL (6-20); Calcium 9.4 mg/dL (8.5-10.5); Carbon Dioxide 25 mmol/L (22-29); Chloride 105 mmol/L (98-107); Globulin 2.8 g/dL (1.3-4.6); Glomerular Filtration Rate 77.6 mL/min (90-130); Glucose 118 mg/dL (65-115); Osmolality Calculated 289 mOsm/kg (285-295); Potassium 3.8 mmol/L (3.5-5.1); Sodium 140 mmol/L (136-145); Total Bilirubin 0.5 mg/dL (0.15-1.2); Total Protein 6.7 g/dL (6.6-8.7)
== END 2022-09-21 02:26 | disposition home or self-care (01) ==
PROVIDERS: Emergency Provider Emergency Medicine; PCP Family Medicine
DX: I10 Essential (primary) hypertension (principal)
CPT/HCPCS: 80053; 85025; 93005; 96374; 99284; J0360

== ENCOUNTER → 2023-01-21 11:18 | Outpatient (BNVA) | payer MEDICAID, SELFPAY | PROVIDERS: PCP Family Medicine; Visit Provider Family Medicine | DX: I10 Essential (primary) hypertension (principal); K21.9 Gastro-esophageal reflux disease without esophagitis; J44.9 Chronic obstructive pulmonary disease, unspecified; M50.30 Other cervical disc degeneration, unspecified cervical region; J41.0 Simple chronic bronchitis; E78.2 Mixed hyperlipidemia; Z13.1 Encounter for screening for diabetes mellitus; R73.9 Hyperglycemia, unspecified; R35.0 Frequency of micturition; Z20.2 Contact with and (suspected) exposure to infections with a predominantly sexual mode of transmission; F41.1 Generalized anxiety disorder; N95.1 Menopausal and female climacteric states; R30.0 Dysuria | CPT/HCPCS: 80053; 80061; 81000; 81025; 83036; 87086; 87491; 87591; 87661 ==

== ENCOUNTER 2023-07-02 03:04 | Emergency (ER) | payer MEDICAID, SELFPAY ==
[2023-07-02 03:05] VITALS: BP 148/72; PULSE 68; RESP 18; TEMP 36.9; O2SAT 95; BMI 40.3
[2023-07-02 03:20] VITALS: BP 151/82; PULSE 61; RESP 13; O2SAT 95
--- NOTE | 2023-07-02 03:28 | XRR_ITS ---
PROCEDURE INFORMATION: Exam: XR Chest Exam date and time: 07/02/2023 3:32 AM Age: 48 years old Clinical indication: Chest wall pain; Patient HX: Middle to left sided chest pain, pain in left arm with tingling feeling and dizziness over the past couple days, patient is a smoker, no HX of cancer TECHNIQUE: Imaging protocol: Radiologic exam of the chest. Views: 1 view. COMPARISON: CR XR chest 1V portable [id number] 04/21/2020 11:49 PM FINDINGS: Lungs: Unremarkable. No consolidation. Pleural spaces: Unremarkable. No pleural effusion. No pneumothorax. Heart/Mediastinum: Unremarkable. No cardiomegaly. Bones/joints: Unremarkable. XR/XR chest 1V portable [id number] IMPRESSION: No acute findings.
--- NOTE | 2023-07-02 03:28 | ECG_ITS ---
[facility] Test Date: 2023-07-02 Pat Name: Terri Ortega Department: Room: Gender: Female Record Searcher: : 1975 Requested By: Ammon Keyes Order Number: [id number] Jeff MD: Madhavi Collins M.D. Measurements Intervals [place] Rate: 62 P: 52 DC: 187 QRS: 2 QRSD: 102 T: 29 QT: 399 QTc: 406 Interpretive Statements SINUS RHYTHM Compared to ECG 09/21/2022 00:50:31 Myocardial infarct finding no longer present Electronically Signed On 07-02-2023 17:20:18 CDT by Madhavi Collins M.D. [id number] f
--- NOTE | 2023-07-02 03:29 | ED_ITS ---
HPI - Back Pain/Injury General: Chief Complaint: Back Pain/Injury Stated Complaint: CP/BACK PAIN Time Seen by Provider: 07/02/23 03:05 History of Present Illness: Patient presents to the ER with complaints of rib pain that radiates into her back. Sometimes the pain gets better when she burps or uses a heating pad. Patient is also felt dizzy and short of breath. Patient does report a previous injury in her neck. However at this time patient really does not have the symptoms as they have resolved. Review of Systems General: Reports: 10 or more systems reviewed and unremarkable except in HPI and below PFSH ED PFSH: Medical History Chronic back pain greater than 3 months duration Essential hypertension GERD (gastroesophageal reflux disease) Mixed hyperlipidemia Obesity Surgical History No pertinent past surgical history Family History Mother Hypertension Denies family history of Stroke Social History Smoking and tobacco status: current every day smoker cigarettes Packs smoked per day: 1 Years cigarettes smoked: 30 Alcohol intake: never Desire information about alcohol rehabilitation?: No Substance/Drug Use: never Desire information about substance/drug rehabilitation?: No Current gender identity: Female Female Reproductive History: Spontaneous abortions: No Physical Exam Const: COMMON NORMALS: no acute distress, average body habitus, patient or iented x3, no limitations, healthy appearing, alert and well nourished HENMT: COMMON NORMALS: normocephalic, atraumatic, hearing grossly normal bi laterally, external ears normal, Normal external nose present and moist oral mucous membranes HEAD & SCALP: normocephalic and atraumatic NOSE: Normal external nose present EXTERNAL EAR: Yes external ears normal Eye: COMMON NORMALS: Equal, round and reactive pupils present, EOMs intact bilaterally, conjunctivae normal and no scleral icterus CONJUNCTIVA: Yes conjunctivae normal PUPIL: Yes Equal, round and reactive pupils present Neck/C-Spine: COMMON NORMALS: full ROM, no lymphadenopathy, supple, no meningeal signs, no JVD and Thyroid normal THYROID: Thyroid normal Lymph: LYMPHATIC: no lymphadenopathy noted Chest: COMMONS NORMALS: normal inspection of the chest and normal palpation of entire chest wall Resp: COMMON NORMALS: normal respiratory effort, No retractions, No use of accessory muscles and clear to auscultation bilaterally AUSCULTATION: clear to auscultation bilaterally Cardio: COMMON NORMALS: no JVD, regular rate, regular rhythm, S1 normal heart sound present, S2 normal heart sound present, No gallops present (Cardio), No clicks present (Cardio), No murmurs present (Cardio) and No rub (Cardio) RATE: regular rate RHYTHM: regular rhythm HEART SOUNDS: S1 normal heart sound present and S2 normal heart sound present GI: COMMON NORMALS: Normal to inspection, nondistended, normoactive bowel sounds present, Soft to palpation, non-tender, No hepatosplenomegaly present and no masses PALPATION: Yes Soft to palpation and Yes No hepatosplenomegaly present : COMMON NORMALS: Yes no CVA tenderness BLADDER/KIDNEY EXAM: Yes no CVA tenderness Back/Pelvis: COMMON NORMALS: no CVA tenderness Neuro: COMMON NORMALS: patient oriented x3 SENSORIUM/ORIENTATION: Yes alert MENINGEAL SIGNS: Yes no meningeal signs Course Vital Signs: Vital signs: Vital Signs Temperature 98.4 F 07/02/23 03:05 Pulse Rate 68 07/02/23 03:05 Respiratory Rate 18 07/02/23 03:05 Blood Pressure 148/72 07/02/23 03:05 Pulse Oximetry 95 07/02/23 03:05 Oxygen Delivery Me thod Room Air 07/02/23 03:05 MDM - Back Pain/Injury Medical Decision Making Patient presented with rib pain that radiates into her back. And epigastric pain with GERD symptoms. Chest pain work-up was initiated. All of which was essentially noncardiac and benign in nature. Patient was given GI cocktail which did improve his symptoms. Patient will be discharged with a diagnosis of chest wall pain and GERD. It is felt that this is noncardiac in nature. Patient should follow-up with her PCP in approximately 7 days or sooner as needed. Differential Diagnosis Unlikely lumbar radiculopathy, sciatica, strain of lumbar region, renal colic, pyelonephritis, thoracic back pain, AAA or discitis Medical Records I reviewed the patient's medical records. Labs I reviewed the patient's lab results. 07/02/23 03:49 07/02/23 03:49 Laboratory Results WBC 6.55 10^3/uL (3.29-11.43) 07/02/23 03:49 RBC 3.79 10^6/uL (3.85-5.65) L 07/02/23 03:49 Hgb 11.70 g/dL (11.27-16.99) 07/02/23 03:49 Hct 34.3 % (36-47) L 07/02/23 03:49 MCV 90.5 fl (85-98) 07/02/23 03:49 MCH 30.9 pg (27-33) 07/02/23 03:49 MCHC 34.1 g/dL (30-55) 07/02/23 03:49 RDW 13.5 % (12.1-15.1) 07/02/23 03:49 Plt Count 154 10^3/cmm (157-399) L 07/02/23 03:49 MPV 10.6 fL (7.4-10.4) H 07/02/23 03:49 Neut % (Auto) 62.8 % 07/02/23 03:49 Lymph % (Auto) 28.7 % 07/02/23 03:49 [place] % (Auto) 5.8 % 07/02/23 03:49 Eos % (Auto) 1.5 % 07/02/23 03:49 Baso % (Auto) 0.6 % 07/02/23 03:49 Neut # (Auto) 4.11 10^3/uL (1.8-7.7) 07/02/23 03:49 Lymph # (Auto) 1.9 10^3/uL (0.8-4.8) 07/02/23 03:49 [place] # (Auto) 0.4 10^3/uL (0.2-0.9) 07/02/23 03:49 Eos # (Auto) 0.1 10^3/uL (0.0-0.8) 07/02/23 03:49 Baso # (Auto) 0.0 10^3/uL (0.0-0.1) 07/02/23 03:49 Nucleated RBC % (auto) 0 % 07/02/23 03:49 Nucleated RBCs # 0.0 /100WBC 07/02/23 03:49 Sodium 140 mmol/L (136-145) 07/02/23 03:49 Potassium 3.6 mmol/L (3.5-5.1) 07/02/23 03:49 Chloride 103 mmol/L (98-107) 07/02/23 03:49 Carbon Dioxide 29 mmol/L (22-29) 07/02/23 03:49 Anion Gap 11.6 (5-19) 07/02/23 03:49 BUN 12 mg/dL (6-20) 07/02/23 03:49 Creatinine 0.8 mg/dL (0.5-0.9) 07/02/23 03:49 GFR Calculation 77.2 mL/min (90-130) L 07/02/23 03:49 Glucose 123 mg/dL (65-115) H 07/02/23 03:49 Calculated Osmolality 291 mOsm/kg (285-295) 07/02/23 03:49 Calcium 9.1 mg/dL (8.5-10.5) 07/02/23 03:49 Magnesium 2.1 mg/dL (1.7-2.3) 07/02/23 03:49 Total Bilirubin 0.5 mg/dL (0.15-1.2) 07/02/23 03:49 AST 27 U/L (0-32) 07/02/23 03:49 ALT 35 U/L (0-33) H 07/02/23 03:49 Alkaline Phosphatase 88 U/L (35-105) 07/02/23 03:49 Troponin T Baseline 6 ng/L (0-10) 07/02/23 03:49 Total Protein 6.8 g/dL (6.6-8.7) 07/02/23 03:49 Albumin 4.5 g/dL (3.5-5.2) 07/02/23 03:49 Globulin 2.3 g/dL (1.3-4.6) 07/02/23 03:49 EKG Data EKG 1: I personally reviewed and interpreted this EKG as follows: EKG interpretation date: 07/02/23 EKG interpretation time: 03:12 Prior EKG tracings: not available for review Interpretation: EKG shows ventricular rate 62 beats minute, CA interval 187, QRS duration 102, QTc 404, sinus rhythm, no ST-T wave changes Discharge Plan Discharge Patient Disposition: Home Clinical Impression: Acute chest wall pain, Chest pain due to GERD Condition: Stable Prescriptions: No Action tizanidine 2 mg tablet 4 mg PO DAILY PRN (Reason: muscle spasticity) Qty: 30 2RF Rx Instructions: 1 or 2 tabs as directed for neck pain/headache lisinopril 40 mg tablet 40 mg PO DAILY 90 Days Qty: 90 1RF omeprazole 40 mg capsule,delayed release(DR/EC) 40 mg PO DAILY 90 Days Qty: 90 1RF albuterol sulfate [Ventolin HFA] 90 mcg/actuation HFA aerosol inhaler 2 puff inhalation QID PRN (Reason: shortness of breath or wheezing) 30 Days Qty: 18 5RF diclofenac sodium 50 mg tablet,delayed release (DR/EC) 50 mg PO BID PRN (Reason: arthritis pain) 90 Days Qty: 180 1RF Rx Instructions: WITH FOOD budesonide-formoterol [Symbicort] 160-4.5 mcg/actuation HFA aerosol inhaler 2 puff inhalation Q12H 30 Days Qty: 10.2 5RF Rx Instructions: rinse your mouth out after use Discharge Orders: Discharge ED (Routine); Ordered 07/02/23 Ordered By: Ammon Keyes Referrals: Mansi Miranda MD [Primary Care Provider] - 1 week Patient Instructions: Chest Pain - Chest Wall, GERD (Gastroesophageal Reflux Disease) (ED) Activity Restrictions/Additional Instructions: Please follow-up with your family practice physician in the next 7 days or sooner as needed. For further evaluation and treatment. If your pain worsens or changes please feel free to return to the ER for further evaluation. 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
[2023-07-02 03:46] VITALS: BP 146/93; PULSE 64; RESP 17; O2SAT 93
[2023-07-02 03:58] LABS: Basophils % 0.6 %; Eosinophils # 0.1 10^3/uL (0.0-0.8); Eosinophils % 1.5 %; Hematocrit 34.3 % (36-47); Lymphocytes # 1.9 10^3/uL (0.8-4.8); Lymphocytes % 28.7 %; Mean Corpuscular HGB Conc 34.1 g/dL (30-55); Mean Corpuscular Hemoglobin 30.9 pg (27-33); Mean Corpuscular Volume 90.5 fl (85-98); Mean Platelet Volume 10.6 fL (7.4-10.4); Monocytes # 0.4 10^3/uL (0.2-0.9); Monocytes % 5.8 %; Neutrophils # 4.11 10^3/uL (1.8-7.7); Neutrophils % 62.8 %; Nucleated Red Blood Cells % 0 %; Platelet Count 154 10^3/cmm (157-399); Red Blood Count 3.79 10^6/uL (3.85-5.65); Red Cell Distribution Width 13.5 % (12.1-15.1); White Blood Count 6.55 10^3/uL (3.29-11.43)
[2023-07-02 04:00] VITALS: BP 140/85; PULSE 52; RESP 16; O2SAT 95
[2023-07-02] MEDS: lidocaine 2% viscous 15 ML, aluminum-mag hydrox-simethicon 30 ML, sucralfate oral liq 1 GM PO (04:04)
[2023-07-02 04:15] VITALS: BP 137/84; PULSE 55; RESP 17; O2SAT 95
[2023-07-02 04:17] LABS: Troponin(5th) Baseline 6 ng/L (0-10)
[2023-07-02 04:23] LABS: Alanine Aminotransferase 35 U/L (0-33); Albumin Level 4.5 g/dL (3.5-5.2); Alkaline Phosphatase 88 U/L (35-105); Anion Gap 11.6 (5-19); Aspartate Amino Transferase 27 U/L (0-32); Blood Urea Nitrogen 12 mg/dL (6-20); Calcium 9.1 mg/dL (8.5-10.5); Carbon Dioxide 29 mmol/L (22-29); Chloride 103 mmol/L (98-107); Globulin 2.3 g/dL (1.3-4.6); Glomerular Filtration Rate 77.2 mL/min (90-130); Glucose 123 mg/dL (65-115); Magnesium 2.1 mg/dL (1.7-2.3); Osmolality Calculated 291 mOsm/kg (285-295); Potassium 3.6 mmol/L (3.5-5.1); Sodium 140 mmol/L (136-145); Total Bilirubin 0.5 mg/dL (0.15-1.2); Total Protein 6.8 g/dL (6.6-8.7)
[2023-07-02 04:30] VITALS: BP 129/77; PULSE 65; RESP 16; O2SAT 98
== END 2023-07-02 04:45 | disposition home or self-care (01) ==
PROVIDERS: Emergency Provider Emergency Medicine; PCP Family Medicine
DX: R07.89 Other chest pain (principal); K21.9 Gastro-esophageal reflux disease without esophagitis; I10 Essential (primary) hypertension; E78.2 Mixed hyperlipidemia; F17.210 Nicotine dependence, cigarettes, uncomplicated
CPT/HCPCS: 36415; 71045; 80053; 83735; 84484; 85025; 93005; 99285

== ENCOUNTER → 2023-07-21 12:05 | Outpatient (BNVA) | payer MEDICAID, SELFPAY | PROVIDERS: PCP Family Medicine; Visit Provider Family Medicine | DX: J44.9 Chronic obstructive pulmonary disease, unspecified (principal); I10 Essential (primary) hypertension; M50.30 Other cervical disc degeneration, unspecified cervical region; J41.0 Simple chronic bronchitis; R51.9 Headache, unspecified; M54.9 Dorsalgia, unspecified; G89.29 Other chronic pain; K21.9 Gastro-esophageal reflux disease without esophagitis | CPT/HCPCS: 72070; 72100 ==

== ENCOUNTER → 2024-01-12 11:09 | Outpatient (BNVA) | payer MEDICAID, SELFPAY | PROVIDERS: PCP Family Medicine; Visit Provider Family Medicine | DX: K21.9 Gastro-esophageal reflux disease without esophagitis (principal); R11.0 Nausea; I10 Essential (primary) hypertension; J41.0 Simple chronic bronchitis; M50.30 Other cervical disc degeneration, unspecified cervical region; R51.9 Headache, unspecified; J44.9 Chronic obstructive pulmonary disease, unspecified; E78.2 Mixed hyperlipidemia; Z72.51 High risk heterosexual behavior; M47.22 Other spondylosis with radiculopathy, cervical region; N95.1 Menopausal and female climacteric states; G44.229 Chronic tension-type headache, not intractable | CPT/HCPCS: 80053; 80061; 81025 ==